=== PATIENT | female | born 1990 | race Caucasian/White ===

== ENCOUNTER 2021-06-17 08:03 | Emergency (ER) | payer OTHER, SELFPAY ==
--- NOTE | 2021-06-17 08:08 | ED.GENADULT ---
HPI - General Adult General Chief complaint: Upper Respiratory Infection Stated complaint: Ear Pain/ Sore Throat Time Seen by Provider: 06/17/21 08:08 Source: patient Mode of arrival: ambulatory Limitations: no limitations History of Present Illness HPI narrative: 31-year-old female patient presents to the [facility] with complaints of stuffy nose, runny nose, headache, sore throat. Patient states symptoms started Friday. Patient states she is not vaccinated for Covid. Patient denies taking anything for her symptoms. Patient denies chest pain, shortness of breath. Patient denies nausea, vomiting or diarrhea. Related Data Home Medications Medication Instructions Recorded Confirmed ergocalciferol (vitamin D2) 1,250 mcg PO WEEKLY 06/17/21 06/17/21 escitalopram oxalate 20 mg PO DAILY 06/17/21 06/17/21 topiramate 25 mg PO DAILY 06/17/21 06/17/21 Allergies Allergy/AdvReac Type Severity Reaction Status Date / Time No Known Allergies Allergy Unverified 06/17/21 08:19 Review of Systems Review of Systems: CONSTITUTIONAL: Denies fever, chills, or sweats. EYES: Denies visual changes, redness, or discharge. ENT: Positive rhinorrhea, congestion, sore throat, and bilateral otalgia. CARDIOVASCULAR: Denies chest pain, palpitations, or edema. RESPIRATORY: Positive nonproductive dry cough, denies dyspnea. GASTROINTESTINAL: Denies abdominal pain, nausea, vomiting, or diarrhea. GENITOURINARY: Denies dysuria or hematuria. SKIN: Denies rash or itching. MUSCULOSKELETAL: Denies back pain, joint pain, or myalgia. NEUROLOGIC: Positive headache, denies numbness, or weakness. PSYCHIATRIC: Denies anxiety or depression. [facility] Past Medical History Medical History (Updated 06/17/21 @ 08:24 by RAEGAN Kasper) Arthritis of knee, right Depression Migraines Ovarian cyst Surgical History Surgical History (Updated 06/17/21 @ 08:10 by RAEGAN Kasper) Delivery by section H/O knee surgery ACL, 2006 Hx of cholecystectomy Family History Family History (Updated 06/17/21 @ 08:11 by RAEGAN Kasper) Other Diabetes mellitus Hypertension Comments At the time of my signature I agree with nursing past medical history, surgical, social, and family history. There is no relevant family history pertinent to the presenting complaint. Exam Narrative: GENERAL: ill-appearing, well-nourished, and in no acute distress. HEAD: Normocephalic, atraumatic. EYES: PERRLA and EOMI. ENT: Nares with erythema and edema noted to right nare, clear rhinorrhea, no epistaxis. Mucous membranes moist. Posterior pharynx with no erythema, tonsillar edema, exudates or lesions present. Bilateral TMs do appear slightly injected but no bulging noted. No concerns for infection at this time. NECK: Supple. No lymphadenopathy CHEST: Clear to auscultation. No respiratory distress. Patient able talk in clear complete sentences. HEART: Regular rate and rhythm. No murmur heard. Normal peripheral pulses. ABDOMEN: Soft, nontender, nondistended, normal active bowel sounds. EXTREMITIES: Normal range of motion. No edema. SKIN: Warm, dry, no rash. NEURO: No focal deficits. Alert and oriented x3. Course Vital Signs Vital signs: Vital Signs Temperature 36.6 C 06/17/21 08:17 Pulse Rate 96 06/17/21 08:17 Respiratory Rate 16 06/17/21 08:17 Blood Pressure 141/84 H 06/17/21 08:17 Pulse Oximetry 98 06/17/21 08:17 Temperature 36.6 C 06/17/21 08:17 Pulse Rate 96 06/17/21 08:17 Respiratory Rate 16 06/17/21 08:17 Blood Pressure 141/84 H 06/17/21 08:17 Pulse Oximetry 98 06/17/21 08:17 Vital signs reviewed The patient has been informed that they may have pre-hypertension or Hypertension based on a BP reading in the department. I recommend that the patient call the primary care provider listed on their discharge instructions or a physician of their choice this week to arrange follow up for further evaluation of possible pre
[2021-06-17 08:17] VITALS: BP 141/84; PULSE 96; RESP 16; TEMP 36.6; O2SAT 98
[2021-06-18 19:59] LABS: SARS-CoV-2 RNA PCR Positive
== END 2021-06-17 08:33 | disposition home or self-care (01) ==
PROVIDERS: Emergency Provider Nurse Practitioner Family
DX: U07.1 COVID-19 (principal); M17.11 Unilateral primary osteoarthritis, right knee; F32.A Depression, unspecified
CPT/HCPCS: 99213; C9803; G0463; U0003; U0005

== ENCOUNTER 2021-12-03 12:46 | Emergency (ER) | payer OTHER, SELFPAY ==
[2021-12-03 12:50] VITALS: BP 126/72; PULSE 97; RESP 20; TEMP 36.9; O2SAT 98
--- NOTE | 2021-12-03 12:57 | ED.URI ---
HPI - URI/Sore Throat General Chief Complaint: Upper Respiratory Infection Stated Complaint: ears cough chest and throat Time Seen by Provider: 12/03/21 12:58 Source: patient and RN notes reviewed History of Present Illness HPI Narrative: Patient is a 31-year-old female who presents the urgent care with complaints of cough, congestion, sore throat and bilateral ear pain. Patient states it started approximately a week and a half ago and she has been taking Sudafed without any results. Patient denies of any fever, nausea, vomiting, shortness of breath or chest pain. Denies any known exposures. No other acute complaints. No acute distress noted. Patient aware of the plan of care. Some parts of this dictation were generated by voice recognition software and may contain typographical and/or grammatical inaccuracies. Related Data Home Medications Medication Instructions Recorded Confirmed ergocalciferol (vitamin D2) 1,250 mcg PO WEEKLY 06/17/21 12/03/21 escitalopram oxalate 20 mg PO DAILY 06/17/21 12/03/21 topiramate 25 mg PO DAILY 06/17/21 12/03/21 levothyroxine 100 mcg PO DAILY 12/03/21 12/03/21 Allergies Allergy/AdvReac Type Severity Reaction Status Date / Time No Known Allergies Allergy Unverified 12/03/21 13:08 Review of Systems Review of Systems: CONSTITUTIONAL: Denies fever, chills, or sweats. EYES: Denies visual changes, redness, or discharge. ENT: Reports of sore throat, bilateral otalgia and congestion CARDIOVASCULAR: Denies chest pain, palpitations, or edema. RESPIRATORY: Reports of cough without dyspnea GASTROINTESTINAL: Denies abdominal pain, nausea, vomiting, or diarrhea. GENITOURINARY: Denies dysuria or hematuria. SKIN: Denies rash or itching. MUSCULOSKELETAL: Denies back pain, joint pain, or myalgia. NEUROLOGIC: Denies headache, numbness, or weakness. All other systems reviewed are negative, except as documented in HPI. [facility] Past Medical History Medical History (Updated 12/03/21 @ 13:15 by RAEGAN Serrano) Arthritis of knee, right Depression Migraines Ovarian cyst Surgical History Surgical History (Updated 06/17/21 @ 08:10 by RAEGAN Kasper) Delivery by section H/O knee surgery ACL, 2007 Hx of cholecystectomy Family History Family History (Updated 06/17/21 @ 08:11 by RAEGAN Kasper) Other Diabetes mellitus Hypertension Comments At the time of my signature, I reviewed and agree with the nursing past medical, surgical, social, and family history. There is no relevant family history pertinent to the patient complaint. Exam Narrative: GENERAL: This is a well-nourished, well-developed patient, in no apparent distress. HEAD: normocephalic, atraumatic. EYES: PERRL. Sclera clear/white. Vision is grossly intact. EARS: External ears normal, auditory canals clear and without drainage, mild bilateral eustachian tube dysfunction. TMs normal without perforation. Hearing grossly intact. NOSE: External nose normal with no obvious nasal discharge, nares without redness, no rhinorrhea. THROAT: Mucous membranes moist, posterior pharynx clear. Mild postnasal drainage NECK: Neck supple CARDIOVASCULAR: Regular rate and rhythm without murmurs, gallops, or rubs. RESPIRATORY: Clear to auscultation. Breath sounds equal bilaterally. No wheezes, rales, or rhonchi. SKIN: warm, intact with no suspicious lesions or rash, good texture and turgor. NEURO: awake, alert, and oriented to person, place and time. There were no obvious focal neurologic abnormalities. EXTREMITIES: No clubbing, cyanosis, or edema. Course Course Level of Care: Express Care Visit Vital Signs Vital signs: Vital Signs Temperature 98.4 F 12/03/21 12:50 Pulse Rate 97 12/03/21 12:50 Respiratory Rate 20 12/03/21 12:50 Blood Pressure 126/72 12/03/21 12:50 Pulse Oximetry 98 12/03/21 12:50 Temperature 98.4 F 12/03/21 12:50 Pulse Rate 97 12/03/21 12:50 Respiratory Rate 20 11/23
== END 2021-12-03 13:20 | disposition home or self-care (01) ==
PROVIDERS: Emergency Provider Nurse Practitioner Family
DX: J40 Bronchitis, not specified as acute or chronic (principal); M17.11 Unilateral primary osteoarthritis, right knee; F32.A Depression, unspecified
CPT/HCPCS: 99213; G0463

== ENCOUNTER 2022-09-01 17:10 | Emergency (ER) | payer MEDICAID, SELFPAY ==
[2022-09-01 17:22] VITALS: BP 147/94; PULSE 98; RESP 20; TEMP 36.6; O2SAT 99
[2022-09-01 17:35] VITALS: BP 147/94; PULSE 98; RESP 20; TEMP 36.6; O2SAT 99
--- NOTE | 2022-09-01 17:47 | ED.URI ---
HPI - URI/Sore Throat General Chief Complaint: Upper Respiratory Infection Stated Complaint: Cough/Chest Congestion Time Seen by Provider: 09/01/22 17:48 History of Present Illness HPI Narrative: Patient presents with cough nasal congestion feeling of ear fullness and laryngitis for the last 2 weeks. Patient has been taking Mucinex and some Tylenol cold and flu for symptoms. No fever no shortness of breath normally healthy individual. Related Data Home Medications Medication Instructions Recorded Confirmed ergocalciferol (vitamin D2) 1,250 1,250 mcg PO WEEKLY 06/17/21 09/01/22 mcg (50,000 unit) capsule escitalopram oxalate 20 mg tablet 20 mg PO DAILY 06/17/21 09/01/22 topiramate 25 mg tablet 25 mg PO DAILY 06/17/21 09/01/22 levothyroxine 100 mcg tablet 100 mcg PO DAILY 12/03/21 09/01/22 rizatriptan 5 mg disintegrating 5 mg PO DAILY PRN Migraine Headache 09/01/22 09/01/22 tablet venlafaxine 37.5 mg 37.5 mg PO DAILY 09/01/22 09/01/22 capsule,extended release 24 hr Allergies Allergy/AdvReac Type Severity Reaction Status Date / Time No Known Allergies Allergy Verified 09/01/22 17:32 Review of Systems Review of Systems: CONSTITUTIONAL: Denies chills, or sweats. Reports fever and generalized body aches EYES: Denies visual changes, redness, or discharge. ENT: Denies otalgia. Reports nasal congestion runny nose and sore throat CARDIOVASCULAR: Denies chest pain, palpitations, or edema. RESPIRATORY: Denies dyspnea. Reports occasional cough GASTROINTESTINAL: Denies abdominal pain, nausea, vomiting, or diarrhea. GENITOURINARY: Denies dysuria or hematuria. SKIN: Denies rash or itching. MUSCULOSKELETAL: Denies back pain, joint pain, or myalgia. Reports generalized body aches NEUROLOGIC: Denies headache, numbness, or weakness. PSYCHIATRIC: Denies anxiety or depression. [facility] Past Medical History Medical History (Updated 09/01/22 @ 17:51 by RAEGAN Quan) Arthritis of knee, right Depression Migraines Ovarian cyst Surgical History Surgical History (Updated 06/17/21 @ 08:10 by RAEGAN Kasper) Delivery by section H/O knee surgery ACL, 2007 Hx of cholecystectomy Family History Family History (Updated 06/17/21 @ 08:11 by RAEGAN Kasper) Other Diabetes mellitus Hypertension Comments At time of signature, agree with nursing past medical, surgical, social and family history. There is no relevant family history pertinent to the presenting complaint Exam Narrative: The patient is a well-developed, well-nourished in no acute distress. SKIN: Skin is warm and dry without erythema, swelling or exudate. There is good turgor. No tenting. HEAD: Atraumatic. Normocephalic. No temporal or scalp tenderness. EYES: Moist and bright. Sclera and conjunctivae normal. No discharge. PERRLA. Extraocular motions intact. Gross visual acuity intact. EARS: Pinna is normal shape and contour. Clear external auditory canals. TM pearly natarajan with good cone of light, no erythema or suppuration. Bilateral cerumen noted no gross hearing deficit. NOSE: pink, moist mucosa with good air movement. Clear rhinorrhea without nasal flaring. Septum midline. Mouth: moist mucous membranes. THROAT; mild erythema noted to posterior oropharynx with moderate postnasal drainage. Without exudate or ulceration.. Uvula midline. Normal movement of soft palate. NECK: Supple and nontender with full range of motion without discomfort. No meningeal signs. LUNGS: Equal and bilateral breath sounds without wheezes, rales or rhonchi. CHEST: The chest wall is without retractions or use of accessory muscles. HEART: Has a regular rate and rhythm without murmur, gallops, click or rub. ABDOMEN: Soft, nontender with positive active bowel sounds. No rebound tenderness. EXTREMITIES: Without cyanosis, clubbing or edema. Equal 2+ distal pulses and 2 second capillary refill noted. NEUROLOGIC: alert, active, . The patient moves all extremities wit
== END 2022-09-01 17:55 | disposition home or self-care (01) ==
PROVIDERS: Emergency Provider Nurse Practitioner Family; PCP Physician Assistant
DX: J06.9 Acute upper respiratory infection, unspecified (principal); J04.0 Acute laryngitis
CPT/HCPCS: 99213; G0463

== ENCOUNTER 2024-03-04 13:37 | Emergency (ER) | payer OTHER, SELFPAY ==
[2024-03-04 13:45] VITALS: BP 138/81; PULSE 96; RESP 16; TEMP 36.3; O2SAT 97
--- NOTE | 2024-03-04 13:59 | ED.GENADULT ---
HPI - General Adult General Chief complaint: Recheck/Abnormal Lab/Rx Stated complaint: needs to be cleared Time Seen by Provider: 03/04/24 13:49 Source: patient and RN notes reviewed Mode of arrival: ambulatory Limitations: no limitations History of Present Illness HPI narrative: Patient presents today requesting a physical exam. She was treated on 02/24/24 for pneumonia with Azithromycin and Amoxicillin and finished them 2 days ago. States she is to have carpal tunnel surgery on 03/11/24 and needs to be cleared for surgery. She needs only an exam and does not require any labs etc. patient states her cough has almost fully resolved. Denies chest pain or shortness of breath. She has been occasionally taking some Robitussin and Tylenol, which did provide some relief. No history of asthma or COPD. She is a nonsmoker. Related Data Home Medications Medication Instructions Recorded Confirmed ergocalciferol (vitamin D2) 1,250 1,250 mcg PO WEEKLY 06/17/21 09/01/22 mcg (50,000 unit) capsule escitalopram oxalate 20 mg tablet 20 mg PO DAILY 06/17/21 09/01/22 levothyroxine 100 mcg tablet 100 mcg PO DAILY 12/03/21 09/01/22 venlafaxine 37.5 mg 37.5 mg PO DAILY 09/01/22 09/01/22 capsule,extended release 24 hr Allergies Allergy/AdvReac Type Severity Reaction Status Date / Time No Known Allergies Allergy Verified 03/04/24 13:39 Review of Systems Review of Systems: CONSTITUTIONAL: Denies body aches, fever, chills, or sweats. EYES: Denies visual changes, redness, or discharge. ENT: Denies rhinorrhea, congestion, sore throat, or otalgia. CARDIOVASCULAR: Denies chest pain, palpitations, or edema. RESPIRATORY: Denies dyspnea.+ occasional cough GASTROINTESTINAL: Denies abdominal pain, nausea, vomiting, or diarrhea. GENITOURINARY: Denies dysuria or hematuria. SKIN: Denies rash, itching, or wounds. MUSCULOSKELETAL: Denies back pain, joint pain, or myalgia. NEUROLOGIC: Denies headache, numbness, tingling, or weakness. PSYCH: Denies depression or anxiety. [facility] Past Medical History Medical History Arthritis of knee, right Depression Migraines Ovarian cyst Surgical History Surgical History Delivery by section H/O knee surgery ACL, 2007 Hx of cholecystectomy Family History Family History Other Diabetes mellitus Hypertension Comments At time of signature, I have reviewed and agree with nursing past medical, surgical, social and family history unless otherwise noted. Please see nursing chart for further information. There is no relevant family history pertinent to the presenting complaint Exam Narrative: GENERAL: Well-appearing, well-nourished, and in no acute distress. HEAD: Normocephalic, atraumatic. EYES: EOMI. No redness or drainage. Conjunctivae normal. ENT: Mucous membranes pink and moist. NECK: Normal AROM. CHEST: No respiratory distress. Clear to auscultation. HEART: Regular rate and rhythm. No murmur appreciated. EXTREMITIES: Normal range of motion. No edema. SKIN: Warm, dry, no rash. Capillary refill normal. Normal skin turgor. NEURO: No focal deficits. Alert and oriented x3. Gait steady. PSYCH: Normal affect. No signs of depression or anxiety. Course Course Level of Care: Express Care Visit Vital Signs Vital signs: Vital Signs Temperature 97.4 F L 03/04/24 13:45 Pulse Rate 96 03/04/24 13:45 Respiratory Rate 16 03/04/24 13:45 Blood Pressure 138/81 03/04/24 13:45 Pulse Oximetry 97 03/04/24 13:45 Oxygen Delivery Room Air 03/04/24 13:45 Temperature 97.4 F L 03/04/24 13:45 Pulse Rate 96 03/04/24 13:45 Respiratory Rate 16 03/04/24 13:45 Blood Pressure 138/81 03/04/24 13:45 Pulse Oximetry 97 03/04/24 13:45 Oxygen Delivery Room Air 03/04/24 13:45
== END 2024-03-04 14:06 | disposition home or self-care (01) ==
PROVIDERS: Emergency Provider Nurse Practitioner; PCP Physician Assistant
DX: Z02.79 Encounter for issue of other medical certificate (principal); M17.11 Unilateral primary osteoarthritis, right knee; F32.A Depression, unspecified
CPT/HCPCS: 99211; G0463

== ENCOUNTER 2025-05-23 15:21 | Emergency (ER) | payer OTHER, MEDICAID, SELFPAY ==
--- OUTSIDE RECORDS SUMMARY | 2025-01-12 11:00 | XMS_ITS ---
Author Organization [facility] Address [facility] [address] Care Team Providers Care Excavating Machine Operator Name Role Phone Shania Sousa PA-C Primary Care Provider Brunilda Nicole Unavailable [phone] Marlee Lopez [phone] REASON FOR VISIT Therapy Social History Sex Assigned At : Social History Observation Description Sex Assigned At Female Encounters En[facility] [place] [id number] [address] [address] 01/12/2025 Marlee Lopez Plan Of Treatment Next Appt Details Provider Name:Marlee Lopez , 05/24/2025 04:00:00 PM, [facility] [address] [facility], [address], [address], Provider Name:Brunilda sanders, 06/13/2025 03:30:00 PM, [facility] [address], [address], [address], Progress Notes * Christina CAZARES RDOB:[birth year] (35 yo F)Acc No.[id number]:01/12/2025 Patient: Brent ana mariavinnieChristina Provider: Phoebe LOPEZ LCSW :1990 A ge:34 Y S ex:Female Date:01/12/2025 Address:[address], [place], [id number] Pcp:Shania Sousa PA-C Data: * Chief Complaints: * T herapy * Electronic signature of Leanna Lopez LCSW on 05/23/2025 at 04:13 PM CDT Sign off status: Pending Signatures: No Ad Hoc Signature Added * Provider: Phoebe LOPEZ LCSW Date: 0 01/12/2025 Generated for Pavel escobedo/Surekha/Alyson on: 0 05/23/2025 04:13 PM CDT
--- OUTSIDE RECORDS SUMMARY | 2025-01-31 08:00 | XMS_ITS ---
Author Organization [facility] Address [facility] [address] Care Team Providers Care Backfiller Name Role Phone Shania Sousa PA-C Primary Care Provider Brunilda Nicole Unavailable [phone] Marlee Lopez [phone] REASON FOR VISIT Therapy Social History Sex Assigned At : Social History Observation Description Sex Assigned At Female Encounters [facility] [place] [id number] [facility] [address] [address] 01/31/2025 Marlee Lopez Plan Of Treatment Next Appt Details Provider Name:Marlee Lopez , 05/24/2025 04:00:00 PM, [address] [place] [address] [address] [facility], [address], [address], Provider Name:Brunilda sanders, 06/13/2025 03:30:00 PM, [facility] [address], [address], [address], Progress Notes * Christina CAZARES RDOB:[birth year] (35 yo F)Acc No.[id number]:01/31/2025 Patient: Brent ana mariavinnieChristina Provider: Phoebe LOPEZ LCSW :1990 A ge:35 Y S ex:Female Date:01/31/2025 Address:[address], [place], [id number] Pcp:Shania Sousa PA-C Data: * Chief Complaints: * T herapy * Electronic signature of Leanna Lopez LCSW on 05/23/2025 at 04:13 PM CDT Sign off status: Pending Signatures: No Ad Hoc Signature Added * Provider: Phoebe LOPEZ LCSW Date: 0 01/31/2025 Generated for Pavel escobedo/Surekha/Alyson on: 0 05/23/2025 04:13 PM CDT
--- OUTSIDE RECORDS SUMMARY | 2025-02-14 11:30 | XMS_ITS ---
Author Organization [facility] Address [facility] [address] Care Team Providers Care Corporate Travel Consultant Name Role Phone Shania Sousa PA-C Primary Care Provider Brunilda Nicole [phone] REASON FOR VISIT 3 month f/u Social History Sex Assigned At : Social History Observation Description Sex Assigned At Female Encounters Encounter Location Date Provider Diagnosis [facility] [place] [id number] [address] 02/14/2025 Brunilda Radford Plan Of Treatment Next Appt Details Provider Name:Marlee Lopez , 05/24/2025 04:00:00 PM, [facility], [address], [address], Provider Name:Brunilda sanders, 06/13/2025 03:30:00 PM, [facility] [address], [address], [address], Progress Notes * Christina CAZARES RDOB:[birth year] (35 yo F)Acc No.[id number]:02/14/2025 Patient: Christina Medina Provider: KATHRIN SIMS :1990 A ge:35 Y S ex:Female Date:02/14/2025 Address:[address], [facility] Pcp:Shania Sousa PA-C Subjective: * Chief Complaints: * 3 month f/u Billing Information: * Procedure Codes: * Electronic signature of KATHRIN Blum on 05/23/2025 at 04:13 PM CDT Sign off status: Pending * Provider: KATHRIN SIMS Date: 0 02/14/2025 Generated for Pavel escobedo/Surekha/Alyson on: 0 05/23/2025 04:13 PM CDT
--- NOTE | 2025-05-23 15:33 | ED.URI ---
HPI - URI/Sore Throat General Chief Complaint: Upper Respiratory Infection Stated Complaint: Body Aches/Cough Time Seen by Provider: 05/23/25 15:37 Source: patient and RN notes reviewed Mode of arrival: ambulatory Limitations: no limitations History of Present Illness HPI Narrative: 35-year-old female presents with concern for my half week history of cough. Reports she has been taking allergy medicine lot relief. She denies runny nose, stuffy nose, sore throat, fever, body aches, chills, sweats. MD elicited complaint: cough Related Data Home Medications ?Medication ?Instructions ?Recorded ?Confirmed ?Last Taken ?Type escitalopram oxalate 20 mg tablet 20 mg PO DAILY 06/17/21 09/01/22 Unknown History levothyroxine 100 mcg tablet 100 mcg PO DAILY 12/03/21 09/01/22 Unknown History bupropion HCl 150 mg 24 hr tablet, mg PO 11/29/24 Unknown History extended release valacyclovir 500 mg tablet mg PO 11/29/24 Unknown History Allergies Allergy/AdvReac Type Severity Reaction Status Date / Time No Known Allergies Allergy Verified 05/23/25 15:37 Review of Systems Review of Systems: CONSTITUTIONAL: Denies malaise, chills, sweats, or fever. EYES: Denies visual changes, redness, or discharge. ENT: Denies rhinorrhea, congestion, sinus pain, otalgia and sore throat. CARDIOVASCULAR: Denies chest pain, palpitations, or edema. RESPIRATORY: Reports cough. Denies dyspnea. GASTROINTESTINAL: Denies abdominal pain, nausea, vomiting, diarrhea SKIN: Denies rash or itching. MUSCULOSKELETAL: Denies myalgia. NEUROLOGIC: Denies headache. All systems reviewed & are unremarkable except as noted in HPI and below PMFSH Past Medical History Medical History Depression Arthritis of knee, right Ovarian cyst Migraines Surgical History Surgical History Delivery by section H/O knee surgery , 2006 Hx of cholecystectomy Family History Family History Other Diabetes mellitus Hypertension Social History Social History Smoking status: Never smoker Comments At time of signature, agree with nursing past medical, surgical, social and family history. There is no relevant family history pertinent to the presenting complaint Exam Narrative: GENERAL: Well-appearing, well-nourished, and in no acute distress. HEAD: Normocephalic EYES: PERRLA, conjunctivae clear ENT: Nares clear. Mucous membranes moist. TM pearly aguilar with dull light reflex bilaterally; no tragal tenderness. Oropharynx not erythematous without lesions. Tonsils not enlarged and without exudate, no drooling, no hoarseness, no trismus, uvula midline. NECK: Supple. No lymphadenopathy CHEST: Clear to auscultation, breath sounds equal. No wheezing, rhonchi, rales, or stridor. No respiratory distress, speaks in full sentences. Cough noted HEART: Regular rate and rhythm. No murmur heard. SKIN: Warm, dry, no rash. NEURO: Alert and oriented x3. PSYCH: Normal mood and affect Course Course Emergency Course: Patient is aware of diagnosis, understands and agrees to treatment plan. Anticipatory guidance given. Patient agrees to follow-up as directed and is aware of reasons to seek care at the emergency department. Portions of this record may have been created with voice recognition software Level of Care: Express Care Visit Vital Signs Vital signs: Reviewed. MDM - URI/Sore Throat MDM Narrative Medical decision making narrative: Differential diagnosis considered: Aleman virus, strep pharyngitis, allergic rhinitis, upper respiratory tract infection, sinusitis, rhinosinusitis, nasopharyngitis. viral pharyngitis, otitis media, otitis externa, pneumonia, bronchitis, viral cough syndrome, viral syndrome, and influenza. Exam findings show no acute concerns or changes; patient is non-toxic appearing and is in no distress. Patient is appropriate for outpatient treatment and follow-up. Lab Data Attestation: I reviewed the patient's lab results. Critical Care Time Critical Care Time Critical Care Time: No Discharge Plan Discharge Clinical Impression: Bronchitis Patient Disposition: Home Condition: Stable Instructions: Acute Bronchitis (ED) Additional Instructions: Viral illness may last between 7-21 days; antibiotics do not cure viral illness and are NOT recommended at this time. Recommend antihistamine such as Benadryl at night time and Zyrtec or Shari during the day Cough syrup may cause drowsiness; avoid driving or take it at night time. Also, recommend symptomatic treatment includes: rest, fluids, and increase humidity of the air at home. Recommend Acetaminophen as directed on the bottle to reduce fever, pain, headache. Avoid smoking/second-hand smoke. Please schedule a follow-up visit with your personal physician for further evaluation and treatment within 3-5days. Including recheck and discussion of your blood pressure. If your symptoms persist, change or worsen significantly before you can contact your personal physician then please, without delay, go to the emergency department for further evaluation. Patient Language: Citizen Of [place] Prescriptions: New promethazine-DM 6.25-15 mg/5 mL syrup 5 ml PO Q4-6H PRN (Reason: cough) Qty: 120 0RF prednisone 20 mg tablet 40 mg PO DAILY 5 Days Qty: 10 0RF No Action levothyroxine 100 mcg tablet 100 mcg PO DAILY escitalopram oxalate 20 mg tablet 20 mg PO DAILY valacyclovir 500 mg tablet PO bupropion HCl 150 mg tablet extended release 24 hr PO Follow-up/Referrals: Merry,SILVINA Schumacher [Primary Care Provider, Unknown] Stand Alone Forms: Work/School Release IP Time of Disposition: 15:46
[2025-05-23 15:34] VITALS: BP 115/60; PULSE 74; RESP 20; TEMP 36.6; O2SAT 100
--- OUTSIDE RECORDS SUMMARY | 2025-05-23 16:13 | XMS_ITS | Clinical Summary ---
Author Organization [facility] Address [address] [place] [address] Phone Care Team Providers Care Office Machine Servicer Name Role Phone Shania Sousa PAC Primary Care Provider + Kolton Landeros MD Unavailable [phone] Milton Cartagena MD Unavailable Alex Childs Unavailable [phone] Allergies No known active allergies Medications BIOTIN FORTE PO Take 1 Tablet by mouth every evening. Active Multiple Vitamin (MULTIVITAMIN PO) Take 1 Tablet by mouth every evening. Active Ferrous Sulfate (IRON PO) Take 65 mg/day by mouth every evening. Active escitalopram (LEXAPRO) 20 MG TabletIndicatio ns:Depression, unspecified depression type TAKE 1 TABLET BY MOUTH EVERY DAY 90 Tablet 1 4 Active levothyroxine (SYNTHROID) 100 MCG TabletIndicatio ns:Hypothyroidi sm, unspecified type TAKE 1 TABLET BY MOUTH EVERY DAY 90 Tablet 1 4 Active busPIRone (BUSPAR) 15 MG Tablet Take 0.5 Tablets by mouth 2 times daily. 90 Tablet 5 Active valACYclovir (VALTREX) 500 MG Tablet TAKE 1 TABLET BY MOUTH EVERY DAY 30 Tablet 5 5 Active MAGNESIUM PO Take by mouth. Ac tive Atogepant (Qulipta) 60 MG TabletIndicatio ns:Chronic migraine w/o aura w/o status migrainosus, not intractable Take 1 Tablet by mouth nightly. 30 Tablet 2 5 Active butalbital-acet aminophen-caffe ine (FIORICET, ESGIC) 50-325-40 MG TabletIndicatio ns:Chronic migraine w/o aura w/o status migrainosus, not intractable Take 1 Tablet by mouth every 4 hours as needed for Headaches or Migraine. 15 Tablet 2 5 Active methylPREDNISol one (MEDROL DOSPACK) 4 MG Tablet Therapy Pack Use as per instructions on package. 1 Tablet 5 Active Active Problems Problem Noted Date Diagnosed Date Carpal tunnel syndrome of left wrist 03/11/2024 Major depressive disorder, recurrent, moderate 1 10/22/2021 Cold sore 06/27/2022 Severe depression 06/27/2022 Leukocytosis Obesity, Class III, BMI 40-49.9 (morbid obesity) Resolved Problems Problem Noted Date Diagnosed Date Resolved Date Acute appendicitis 11/13/2022 3 Encounters Date Type Department Care Team Description 03/18/2025 2:00 PM CDT Office Visit [facility] - Neurology [facility] [address] [place] [address] Brooklyn Mireles, BRIM IRONER HAND, LOCOMOTIVE CRANE OPERATOR HELPER Chronic migraine w/o aura w/o status migrainosus, not intractable (Primary Dx) Discharge Disposition: Discharged to home or Selfcare 03/18/2025 Travel 03/10/2025 Refill [facility] - Family Medicine [facility] [address] [place] [id number] Shania Sousa, JORDY Medication Refill from Last 3 Months Immunizations Immunization Administration Dates Next Due DTP Vaccine 04/21/1995, 1,1990,05/18,1990 Hepatitis B Vaccine, Pediatric/adolescent 01/03/1997,07/12/1996,06/07/1996 Hib Vaccine,unspecified Formulation 04/27,02/09/1991,1990,07/21 Human Papillomavirus (HPV) V accine, Bivalent 01/27/2008 Inactivated Polio Vaccine 04/21/1995,04/1991,1990,03/23 MMR Vaccine 04/21/1995,05/24/1991 Meningococcal C Conjugate Vaccine 12/22/2006 TD VACCINE 03/26/2004 TDAP Vaccine 11/24/2023,12/22/2006 Varicella Vaccine Live 04/14/2000 Family History Medical History Relation Name Comments No Known Problems Brother Diabetes Father Breast Cancer Maternal Grandmother Hypothyroidism Mother Breast Cancer Paternal Grandmother Relation Name Status Comments Brother Father Alive Maternal Grandmother Mother Alive Paternal Grandmother Social History Tobacco Use Types Packs/Day Years Used Date Smoking Tobacco: Never Smokeless Tobacco: Never Tobacco Cessation:Counseling Given: No Alcohol Use Standard Drinks/Week Comments Not Currently 0 (1 standard drink = 0.6 oz pur e alcohol) rarely Electric Impities Answer Date Recorded In the past 12 months has th e electric, gas, oil, or water company threatened to shut off services in your home? Yes 08/31/2024 Social Connection and Isolation Panel Answer Date Recorded In a typical week, how many times do you talk on the phone with family, friends, or neighbors? More than three times a week 08/31/2024 How often do you get togethe r with friends or relatives? Never 08/31/2024 How often do you attend [facility] ch or hinduism services? Never 08/31/2024 Do you belong to any clubs o r organizations such as evangelical groups, unions, fraternal or athletic groups, or school groups? Yes 08/31/2024 How often do you attend meet ings of the clubs or organizations you belong to? 1 to 4 times per year 08/31/2024 Are you , , di vorced, , never , or living with a partner? Living with partner 08/31/2024 AUDIT-C Answer Date Recorded Q1: How often do you have a drink containing alc ohol? Monthly or less 08/31/2024 Q2: How many drinks containi ng alcohol do you have on a typical day when you are drinking? 1 or 2 08/31/2024 Q3: How often do you have si x or more drinks on one occasion? Never 08/31/2024 Overall Financial Resource Strain (CARDIA) Answe r Date Recorded How hard is it for you to pa y for the very basics like food, housing, medical care, and heating? Somewhat hard 08/31/2024 PHQ-2 Answer Date Recorded Total Score - Questions 1-9 16 08/2023 [facility] - Occupational Stress Questionnaire Answer Date Recorded Do you feel stress - tense, restless, nervous, or anxious, or unable to sleep at night because your mind is troubled all the time - these days? Very much 08/31/2024 Exercise Vital Sign Answer Date Recorde d On average, how many days pe r week do you engage in moderate to strenuous exercise (like a brisk walk)? 0 days 08/31/2024 On average, how many minutes do you engage in exercise at this level? 0 min 08/31/2024 Hunger Vital Sign Answer Date Recorded Within the past 12 months, y ou worried that your food would run out before you got the money to buy more. Sometimes true Within the past 12 months, t he food you bought just didn't last and you didn't have money to get more. Sometimes true 02/2025 PRAPARE - Transportation Answer Date Re corded In the past 12 months, has l ack of transportation kept you from medical appointments or from getting medications? No 02/2025 In the past 12 months, has l ack of transportation kept you from meetings, work, or from getting things needed for daily living? No 08/31/2024 Housing Stability Vital Sign Answer Jorge e Recorded In the last 12 months, was t here a time when you were not able to pay the mortgage or rent on time? No 11/22/2023 In the last 12 months, how many places have you lived? 1 11/22/2023 In the last 12 months, was t here a time when you did not have a steady place to sleep or slept in a correction (including now)? No 11/22/2023 Housing Stability Vital Sign Answer Jorge e Recorded In the last 12 months, was t here a time when you were not able to pay the mortgage or rent on time? Patient declined 08/31/19 25 In the past 12 months, how m any times have you moved where you were living? 0 08/31/2024 At any time in the past 12 m [facility], were you homeless or living in a correction (including now)? No 08/31/2024 Education Answer Date Recorded What is the highest level of school you have completed or the highest degree you have received? Bachelor's degree (e.g., BA, AB, BS) 06/27/2022 Sexually Active Control Partners Comments Yes Surgical Male Tubal Comments No Sex and Gender Information Value Date Recorded Sex Assigned at Female 07/27/2023 8:19 PM ACID STRENGTH INSPECTOR Legal Sex Female 7:53 PM CDT Gender Identity Female 07/27/2023 8:19 PM ACID STRENGTH INSPECTOR Sexual Orientation Straight 07/27/2023 8: 19 PM ACID STRENGTH INSPECTOR Last Filed Vital Signs Vital Sign Reading Time Taken Comments Blood Pressure 118/76 03/18/2025 1:56 PM CDT Pulse 91 03/18/2025 1:56 PM CDT Temperature 36.2 C (97.2 F) 03/18/2025 1:56 PM CDT Respiratory Rate 16 03/18/2025 1:56 PM CDT Oxygen Saturation 95% 03/18/2025 1:56 PM CDT Inhaled Oxygen Concentration - - Weight 116.8 kg (257 lb 9.6 oz) 03/18/2025 1:56 PM CDT Height 160 cm (5' 3) 03/18/2025 1:56 PM CDT Body Mass Index 45.63 03/18/2025 1:56 PM CDT Plan of Treatment Upcoming Encounters Date Type Department Care Team (Late st Contact Info) Description 06/07/2025 4:00 PM CDT Office Visit [facility] - Neurology [facility] [address] [place] [address] Brooklyn Mireles APRN, LOCOMOTIVE CRANE OPERATOR HELPER [address] [place] [address] Health Maintenance Due Date Last Done Comments Human Papillomavirus (HPV) Immunization (2 - 3-dose series) 02/24/2008 01/27/2008 HPV/Cotest 01/14/2020 Cervical Cancer Screening (CCS) 11/16/2023 Pap Smear 11/16/2023 11/15/2020 Influenza Immunization (#1) 2025 SARS-COV-2 Immunization (2023-25 season) 2025 DTaP/Tdap/Td Immunization (8 - Td or Tdap) 11/23/2033 11/24/2023, 12/22/2006, 03/26/2004, Additional history exists Respiratory Syncytial Virus (RSV) Immunization (Adult) (1 - 1-dose 75+ series) 2065 Hepatitis B Immunization Completed 997, 07/12/1996, 06/07/1996 Hepatitis C Virus (HCV) Screening Discontinued Meningococcal Immunization (ACWY) Aged Out No longer eligible based on patient's age to complete this topic Pneumococcal Immunization Combined Aged Out No longer eligible based on patient's age to complete this topic Rotavirus Immunization Aged Out No lo nger eligible based on patient's age to complete this topic Goals Goal Patient Goal Type Associated Problems Recent Progress Patient-Stated? Author I want to be able to talk this out. To process all of this. Behavioral Health Yes Zoraida Swain LCSW Note: Goal/Objective: Reduce emotional distress by processing the events. Anticipated Time Frame for Goal Completion: 6 months Goal Reviewed with: patient Readiness to change: Ready to change Department associated with goal: [facility] Steps to achieve goal: will attend psychotherapy/counseling monthly at least 6 sessions and self disclose to have an outlet for distressing thoughts and feelings. will build insight regarding triggers, both internal and external; pt will be able to identify at least two internal and two external triggers to low and anxious moods. Will identify at least two skills/strategies to use when a triggering event occurs Depression Behavioral Health No Zoraida Swain, MANUFACTURING COST ESTIMATOR Note: Christina will manage depressive symptoms more effectively Goal/Objective: Improve management of depressive symptoms. Anticipated Time Frame for Goal Completion: 6 months Goal Reviewed with: patient Readiness to change: Ready to change Department associated with goal: [facility] Steps to achieve goal: will attend counseling/psychotherapy sessions at least once monthly, at least 6 sessions, utilizing individual and/or group sessions to express thoughts and feelings. to identify, verbalize and process at least three contributing factors/triggers to anxiety and depression. to identify and verbalize at least three actions/skills to prevent and/or cope with anxiety and depression. to put into action, at least one time weekly, for one month, an action/skill to prevent and or cope with anxiety and depression. Insurance MEDICAID [place] [address] Advance Directives * Full Code (Latest Code Status on File) Date Activated Date Inactivated Comments 11/13/2022 5:08 AM 11/13/2022 9:30 PM CPR-Full Reid atment: FULL ARREST: Attempt Resuscitation/CPR wit intubation and mechanical ventilation. PRE-ARREST: Use entire range of life support measures to stabilize the patient. Care Teams Office Machine Servicer Relationship Specialty Start Date End Date Shania Sousa PAC [address] [place] [address] PCP - General Physician Critical Care Unit Manager 06/27/22 Kolton Landeros MD [address] [phone] Consulting Physician General Surgery 11/15/22 Milton Cartagena MD [address] [place] [address] Consulting Physician Neurology 01/13/24 Alex Childs PAC [address] [place] [address] Physician Critical Care Unit Manager Physician Critical Care Unit Manager 02/19/24
--- OUTSIDE RECORDS SUMMARY | 2025-05-23 16:13 | XMS_ITS | Encounter Summary ---
Author Organization [facility] Address [address] [place] [address] Phone Care Team Providers Care Roll Edge Stitcher Hand Name Role Phone Shania Sousa PAC Primary Care Provider + Kolton Landeros MD Unavailable Milton Cartagena MD Unavailable [phone] Alex Childs PAC Unavailable [phone] Reason for Visit * Reason Comments Medication Refill Encounter Details Date Type Department Care Team (Late st Contact Info) Description 02/25/2024 Refill [facility] - Family Medicine [facility] [address] [place] [address] Shania Sousa, PAC [address] [place] [address] Medication Refill Social History Tobacco Use Types Packs/Day Years Used Date Smoking Tobacco: Never Smokeless Tobacco: Never Alcohol Use Standard Drinks/Week Comments Not Currently 0 (1 standard drink = 0.6 oz pur e alcohol) rarely [facility] Utilities Answer Date Recorded In the past 12 months has e electric, gas, oil, or water company threatened to shut off services in your home? No 11/22/2023 Social Connection and Isolation Panel Answer Date Recorded In a typical week, how many times do you talk on the phone with family, friends, or neighbors? More than three times a week 11/22/2023 How often do you get togethe r with friends or relatives? Once a week 11/22/2023 How often do you attend chur ch or hindu services? Never 11/22/2023 Do you belong to any clubs o r organizations such as restoration groups, unions, fraternal or athletic groups, or school groups? No 11/22/2023 How often do you attend meet ings of the clubs or organizations you belong to? Never 11/22/2023 Are you , , di vorced, , never , or living with a partner? Living with partner 11/22/2023 AUDIT-C Answer Date Recorded Q1: How often do you have a drink containing alc ohol? Monthly or less 11/22/2023 Q2: How many drinks containi ng alcohol do you have on a typical day when you are drinking? 1 or 2 11/22/2023 Q3: How often do you have si x or more drinks on one occasion? Never 11/22/2023 Overall Financial Resource Strain (CARDIA) Answe r Date Recorded How hard is it for you to pa y for the very basics like food, housing, medical care, and heating? Somewhat hard 11/22/2023 PHQ-2 Answer Date Recorded Total Score - Questions 1-9 16 04/08/2023 [facility] Occupat ional Health - Occupational Stress Questionnaire Answer Date Recorded Do you feel stress - tense, restless, nervous, or anxious, or unable to sleep at night because your mind is troubled all the time - these days? Very much 11/22/2023 Exercise Vital Sign Answer Date Recorde d On average, how many days pe r week do you engage in moderate to strenuous exercise (like a brisk walk)? 0 days 11/22/2023 On average, how many minutes do you engage in exercise at this level? 0 min 11/22/2023 Hunger Vital Sign Answer Date Recorded Within the past 12 months, y ou worried that your food would run out before you got the money to buy more. Never true 11/22/19 24 Within the past 12 months, t he food you bought just didn't last and you didn't have money to get more. Never true 11/22/2023 PRAPARE - Transportation Answer Date Re corded In the past 12 months, has l ack of transportation kept you from medical appointments or from getting medications? No 10/25 In the past 12 months, has l ack of transportation kept you from meetings, work, or from getting things needed for daily living? No 11/22/2023 Housing Stability Vital Sign Answer [...] place to sleep or slept in a detention (including now)? No 11/22/2023 Education Answer Date Recorded What is the highest level of school you have completed or the highest degree you have received? Bachelor's degree (e.g., BA, AB, BS) 06/27/2022 Sexually Active Control Partners Comments Yes Surgical Male Tubal Comments No Sex and Gender Information Value Date Recorded Sex Assigned at Female 07/27/2023 8:19 PM DICTATING MACHINE TRANSCRIBER Legal Sex Female 7:53 PM CDT Gender Identity Female 07/27/2023 8:19 PM DICTATING MACHINE TRANSCRIBER Sexual Orientation Straight 07/27/2023 8: 19 PM DICTATING MACHINE TRANSCRIBER documented as of this encounter Miscellaneous Notes * Telephone Encounter - Magaly Blancas RN - 02/25/2024 3:46 PM CDT 12 week Rx. Therapy complete. documented in this encounter Plan of Treatment Upcoming Encounters Date Type Department Care Team (Late st Contact Info) Description 06/07/2025 4:00 PM CDT Office Visit [facility] - Neurology - [place] [address] [place] [address] Brooklyn Mireles APRN, MOVERS [address] [place] [address] documented as of this encounter Goals Goal Patient Goal Type Associated Problems Recent Progress Patient-Stated? Author I want to be able to talk this out. To process all of this. Behavioral Health Yes Zoraida Swain, GRISELDA Note: Goal/Objective: Reduce emotional distress by processing the events. Anticipated Time Frame for Goal Completion: 6 months Goal Reviewed with: patient Readiness to change: Ready to change Department associated with goal: [facility] Steps to achieve [...] occurs Depression Behavioral Health No Zoraida Swain, GRISELDA Note: Christina will manage depressive symptoms more effectively Goal/Objective: Improve management of depressive symptoms. Anticipated Time Frame for Goal Completion: 6 months Goal Reviewed with: patient Readiness to change: Ready to change Department associated with goal: [facility] Steps to achieve [...] and or cope with anxiety and depression. documented as of this encounter Visit Diagnoses Diagnosis Vitamin D deficiency Unspecified vitamin D deficiency documented in this encounter Additional Health Concerns Assessment Noted Time PHQ-9 Depression Total Score: 16 024 2:37 PM CDT documented as of this encounter Care Teams Roll Edge Stitcher Hand Relationship Specialty Start Date End Date Shania Sousa PAC [address] [place] [address] PCP - General Physician Case Aide 06/27/22 Kolton Landeros MD [address] [address] Consulting Physician General Surgery 11/15/22 Milton Cartagena MD [address] [place] [phone] Consulting Physician Neurology 01/13/24 Alex Childs PAC [address] [place] [address] Physician Case Aide Physician Case Aide 02/19/24 documented as of this encounter
--- OUTSIDE RECORDS SUMMARY | 2025-05-23 16:13 | XMS_ITS | Clinical Summary ---
Author Organization [facility] Address [address] [place] [address] Care Team Providers Care Lining Baster Name Role Phone Unavailable Primary Care Provider Unavailabl e Source Comments [facility],non-owned Affiliates and Associated Physician Practices is amultiple site organization consisting of ambulatory clinics and hospital sitesin [place], [place], [place] and [place]. This disclosure is being madepursuant to the Care Everywhere program and may not contain all information available regarding this patient. Last updated 18.[facility] Allergies No known active allergies Medications * Be aware that medications may not be up to date on this document. Alwaysverify current medications with the patient. vitamin-ferrous fumarate-folic acid (NATALCARE PLUS) 27-1 MG tablet Take 1 Tab by mouth once daily. Active Active Problems Patient Care Coordination No te Formatting of this note migh t be different from the original. Negative Sequential Screen Unable to obtain facial views at [facility] office Problem Noted Date Diagnosed Date Encounter for supervision of other normal pregna ncy 08/13/2013 Overview (07/02/2015): Encounter for routine screen ing for malformation using ultrasonics 08/13/2013 Family History Medical History Relation Name Comments Diabetes Father Relation Name Status Comments Father Social History Tobacco Use Types Packs/Day Years Used Date Smoking Tobacco: Never Assessed Comments No Sex and Gender Information Value Date Recorded Sex Assigned at Not on file Legal Sex Female 5:43 AM RETINAL SURGEON Gender Identity Not on file Sexual Orientation Not on file Plan of Treatment Health Maintenance Due Date Last Done Comments HIV SCREENING 2005 HEPATITIS C SCREENING 01/09/2008 DTAP/TDAP/TD VACCINES (1 - Tdap) 2009 HEPATITIS B VACCINE (1 of 3 - 19+ 3-dose series) 2009 HPV VACCINE (1 - 3-dose SCDM series) 2017 DEPRESSION SCREENING 08/25/2024 COVID-19 VACCINE (1 - 2023-2 5 season) 2025 INFLUENZA VACCINE (#1) 2025 ZOSTER VACCINE (1 of 2) 01/14/2040 HIB VACCINE Aged Out No longer eligi ble based on patient's age to complete this topic MENINGOCOCCAL (Group B) VACC INE SHARED DECISION-MAKING Aged Out No longer eligibl e based on patient's age to complete this topic MENINGOCOCCAL GROUPS A/C/Y/W VACCINE Aged Out No longer eligible b ased on patient's age to complete this topic PNEUMOCOCCAL VACCINE Aged Out No long er eligible based on patient's age to complete this topic Insurance [facility] [place] [address] [place] [address] MEDICA[place]
--- OUTSIDE RECORDS SUMMARY | 2025-05-23 16:13 | XMS_ITS | Encounter Summary ---
Author Organization [facility] Address [address] [place] [address] Phone Care Team Providers Care Cartridge Gauger Name Role Phone Shania Sousa PAC Primary Care Provider + Kolton Landeros MD Unavailable Milton Cartagena MD Unavailable [phone] Alex Childs PAC Unavailable [phone] Reason for Visit * Reason Comments Medication Refill Encounter Details Date Type Department Care Team (Late st Contact Info) Description 11/16/2023 Refill [facility] - Family Medicine [facility] [address] [place] [address] Shania Sousa, PAC [address] [place] [address] Medication Refill Social History Tobacco Use Types Packs/Day Years Used Date Smoking Tobacco: Never Smokeless Tobacco: Never Alcohol Use Standard Drinks/Week Comments Not Currently 0 (1 standard drink = 0.6 oz pur e alcohol) rarely PHQ-2 Answer Date Recorded Total Score - Questions 1-9 0 04/25 Education Answer Date Recorded What is the highest level of school you have completed or the highest degree you have received? Bachelor's degree (e.g., BA, AB, BS) 06/27/2022 Sexually Active Control Partners Comments Yes Surgical Male Tubal Comments No Sex and Gender Information Value Date Recorded Sex Assigned at Female 07/27/2023 8:19 PM SEWER BRICKLAYER Legal Sex Female 7:53 PM CDT Gender Identity Female 07/27/2023 8:19 PM SEWER BRICKLAYER Sexual Orientation Straight 07/27/2023 8: 19 PM SEWER BRICKLAYER documented as of this encounter Miscellaneous Notes * Telephone Encounter - Leslie Plummer RN - 11/16/2023 3:34 PM CDT Medication failed the protocol, provider to review and approve the medication order if appropriate. Requested Prescriptions Pending Prescriptions Disp Refills escitalopram (LEXAPRO) 20 MG Tablet [Pharmacy Med Name: ESCITALOPRAM 20 MG TABLET] 90 Tablet 1 Sig: TAKE 1 TABLET BY MOUTH EVERY DAY [facility] (6 Month Refill Only) Protocol Failed - 11/16/2023 7:07 AM Failed - Has an encounter in the past 6 months with a depression, anxiety, adjustment disorder, OCD, or PTSD visit diagnosis Passed - No test in the past 12 months or most recent test was negative Passed - No active on record Passed - Visit with relevant provider in past 6 months or upcoming 90 days Recent Visits Date Type Provider Dept 08/15/23 Office Visit Amada Reilly APRN, [facility] [place] 07/09/23 Office Visit Amada Reilly APRN, [facility] [place] 07/02/23 Office Visit Shania Sousa, JORDY [facility] [place] 06/30/23 Office Visit Daniel Arthur APRN, [facility] [place] Showing recent visits within past 182 days and meeting all other requirements Future Appointments Date Type Provider Dept 11/24/23 Appointment Shania Sousa, PAC [facility] [place] Showing future appointments within next 90 days and meeting all other requirements Passed - Patient has established therapy with [facility] for at least 6 months documented in this encounter Plan of Treatment Upcoming Encounters Date Type Department Care Team (Late st Contact Info) Description 06/07/2025 4:00 PM CDT Office Visit [facility] - Neurology - [place] [address] [place] [address] Brooklyn Mireles, CERAMIST, MINING ENGINEER [address] [place] [address] documented as of this encounter Goals Goal [...] Ready to change Department associated with goal: [facility] Steps to achieve goal: [...] Ready to change Department associated with goal: [facility] Steps to achieve goal: [...] as of this encounter Visit Diagnoses Diagnosis Depression, unspecified depression type documented in this encounter Additional Health Concerns Infection Onset Date Last Indicated Resolved Time COVID - 19 02/24/2024 02/24/2024 02/24/2024 4:18 PM CDT Assessment Noted Time PHQ-9 Depression Total Score: 0 05/05/20 2:20 PM CDT documented as of this encounter Care Teams Cartridge Gauger Relationship Specialty Start Date End Date Shania Sousa, JORDY [address] [place] [address] PCP - General Physician Nuclear Design Engineer 06/27/22 Kolton Landeros MD [address] [phone] Consulting Physician General Surgery 11/15/22 Milton Cartagena MD [address] [place] [address] Consulting Physician Neurology 01/13/24 Alex Childs PAC [address] [place] [address] Physician Nuclear Design Engineer Physician Nuclear Design Engineer 02/19/24 documented as of this encounter
--- OUTSIDE RECORDS SUMMARY | 2025-05-23 16:13 | XMS_ITS | Encounter Summary ---
Author Organization [facility] Address [address] [place] [address] Phone Care Team Providers Care Manager Hospice Name Role Phone Shania Sousa PAC Primary Care Provider + Kolton Landeros MD Unavailable [phone] Milton Cartagena MD Unavailable [phone] Alex Childs PAC Unavailable [phone] Reason for Visit * Reason Comments Medication Refill Encounter Details Date Type Department Care Team (Late st Contact Info) Description 06/11/2024 Refill [facility] - Family Medicine [facility] [address] [place] [address] Shania Sousa, PAC [address] [place] [address] Medication Refill Social History Tobacco Use Types Packs/Day Years Used Date Smoking Tobacco: Never Smokeless Tobacco: Never Alcohol Use Standard Drinks/Week Comments Not Currently 0 (1 standard drink = 0.6 oz pur e alcohol) rarely [facility] Utilities Answer Date Recorded In the past 12 months has e electric, gas, oil, or water company threatened to shut off services in your home? Yes 03/20/2024 Social Connection and Isolation Panel Answer Date Recorded In a typical week, how many times do you talk on the phone with family, friends, or neighbors? More than three times a week 03/20/2024 How often do you get togethe r with friends or relatives? Once a week 03/20/2024 How often do you attend chur ch or protestant services? Never 03/20/2024 Do you belong to any clubs o r organizations such as anabaptism groups, unions, fraternal or athletic groups, or school groups? No 03/20/2024 How often do you attend meet ings of the clubs or organizations you belong to? Never 03/20/2024 Are you , , di vorced, , never , or living with a partner? Living with partner 03/20/2024 AUDIT-C Answer Date Recorded Q1: How often do you have a drink containing alcohol? Never 03/20/2024 Q2: How many drinks containi ng alcohol do you have on a typical day when you are drinking? Patient does not drink Q3: How often do you have si x or more drinks on one occasion? Never 03/20/2024 Overall Financial Resource Strain (CARDIA) Answe r Date Recorded How hard is it for you to pa y for the very basics like food, housing, medical care, and heating? Hard 03/20/2024 PHQ-2 Answer Date Recorded Total Score - Questions 1-9 16 04/0 08/2023 [facility] of Occupat ional Health - Occupational Stress Questionnaire Answer Date Recorded Do you feel stress - tense, restless, nervous, or anxious, or unable to sleep at night because your mind is troubled all the time - these days? Very much 03/20/2024 Exercise Vital Sign Answer Date Recorde d On average, how many days pe r week do you engage in moderate to strenuous exercise (like a brisk walk)? 0 days 03/20/2024 On average, how many minutes do you engage in exercise at this level? 0 min 03/20/2024 Hunger Vital Sign Answer Date Recorded Within the past 12 months, y ou worried that your food would run out before you got the money to buy more. Sometimes true Within the past 12 months, t he food you bought just didn't last and you didn't have money to get more. Sometimes true PRAPARE - Transportation Answer Date Re corded In the past 12 months, has l ack of transportation kept you from medical appointments or from getting medications? No 02/23 In the past 12 months, has l ack of transportation kept you from meetings, work, or from getting things needed for daily living? No 03/20/2024 Housing Stability Vital Sign Answer Jorge e [...] place to sleep or slept in a mcfp (including now)? No 11/22/2023 Housing Stability Vital Sign Answer Jorge e Recorded In the last 12 months, was t here a time when you were not able to pay the mortgage or rent on time? Yes 03/20/2024 In the past 12 months, how m any times have you moved where you were living? 0 03/20/2024 At any time in the past 12 m [facility], were you homeless or living in a mcfp (including now)? No 03/20/2024 Education Answer Date Recorded What is the highest level of school you have completed or the highest degree you have received? Bachelor's degree (e.g., BA, AB, BS) 06/27/2022 Sexually Active Control Partners Comments Yes Surgical Male Tubal Comments No Sex and Gender Information Value Date Recorded Sex Assigned at Female 07/27/2023 8:19 PM SCIENCE TECHNICIANS Legal Sex Female 7:53 PM CDT Gender Identity Female 07/27/2023 8:19 PM SCIENCE TECHNICIANS Sexual Orientation Straight 07/27/2023 8: 19 PM SCIENCE TECHNICIANS documented as of this encounter Miscellaneous Notes * Telephone Encounter - Lis Alston RN - 06/11/2024 4:47 PM CDT Images from the original note were not included. Name from pharmacy: METHOCARBAMOL 750 MG TABLET Will file in chart as: methocarbamol (ROBAXIN) 750 MG Tablet The original prescription was discontinued on 08/15/2023 by Amada Reilly, SHACTOR, MANAGER LOAN for the following reason: Therapy completed. documented in this encounter Plan of Treatment Upcoming Encounters Date Type Department Care Team (Late st Contact Info) Description 06/07/2025 4:00 PM CDT Office Visit [facility] - Neurology - [place] [address] [place] [address] Brooklyn Mireles APRN, DIRECTOR DRUG [address] [place] [address] documented as of this encounter Goals Goal [...] Ready to change Department associated with goal: [facility] Steps to achieve [...] occurs Depression Behavioral Health No Zoraida Swain, WIRE FENCE BUILDER Note: Christina will manage depressive symptoms more effectively Goal/Objective: Improve management of depressive symptoms. Anticipated Time Frame for Goal Completion: 6 months Goal Reviewed with: patient Readiness to change: Ready to change Department associated with goal: [facility] Steps to achieve [...] as of this encounter Visit Diagnoses Diagnosis Acute left-sided thoracic back pain documented in this encounter Additional Health Concerns Assessment Noted Time PHQ-9 Depression Total Score: 16 024 2:37 PM CDT documented as of this encounter Care Teams Manager Hospice Relationship Specialty Start Date End Date Shania Sousa PAC [address] [place] [address] PCP - General Physician Senior Laboratory Technician 06/27/22 Kolton Landeros MD [address] [phone] Consulting Physician General Surgery 11/15/22 Milton Cartagena MD [address] [place] [phone] Consulting Physician Neurology 01/13/24 Alex Childs PAC [address] [place] [phone] Physician Senior Laboratory Technician Physician Senior Laboratory Technician 02/19/24 documented as of this encounter
--- OUTSIDE RECORDS SUMMARY | 2025-05-23 16:13 | XMS_ITS | Clinical Summary ---
Author Organization [facility] Address [address] [place] [address] Care Team Providers Care Hand Profiler Name Role Phone Shania Sousa Primary Care Provider + [phone] Allergies No known active allergies Medications levothyroxine (SYNTHROID) 100 mcg tablet Take 1 tablet (100 mcg total) by mouth daily 09/26/2022 Active topiramate (TOPAMAX) 25 mg tablet Take 2 tablets (50 mg total) by mouth 2 (two) times a day 06/15/2022 Active escitalopram (LEXAPRO) 20 mg tablet Take 1 tablet (20 mg total) by mouth daily 07/25/2022 Active venlafaxine XR (EFFEXOR-XR) 75 mg 24 hr capsule Take 1 capsule (75 mg total) by mouth daily 08/05/2022 Active ergocalciferol (VITAMIN D) 50,000 unit capsule TAKE 1 CAPSULE BY MOUTH EVERY 1 WEEK 09/02/2022 Active biotin 1 mg tablet Take by mouth 11/20/2016 Active cyanocobalamin, vitamin B-12, (cyanocobalamin ,vit B-12,,bulk,) powder Take by mouth Active multivitamin tablet Take by mouth Active vit-iron fum-folic ac 28 mg iron- 800 mcg tablet Take 1 tablet by mouth daily Active cholecalciferol (VITAMIN D-3) 2000 unit tablet Take by mouth 11/20/2016 Active fluticasone propionate (FLOVENT HFA) 110 mcg/actuation inhaler INHALE 2 PUFFS BY MOUTH EVERY 12 HOURS 09/01/2022 Active tnbvm-5w-srh-ep a-fish oil ([place]-3 Fish OiL) 300-1,000 mg capsule Take by mouth 11/20/2016 Active propranoloL (INDERAL) 10 mg tablet Take 1 tablet (10 mg total) by mouth 3 (three) times a day 10/07/2022 Active rizatriptan (MAXALT) 10 mg tablet Take 1 tablet (10 mg total) by mouth daily as needed 10/07/2022 Active ascorbic acid (ascorbic acid with yin hips) 500 mg tablet,chewable 1 tablet/chew tab (500 mg total) Active zinc gluconate 30 mg tablet Take 30 mg by mouth Active buPROPion XL (WELLBUTRIN XL) 150 mg 24 hr tablet TAKE 1 TABLET EVERY DAY BY ORAL ROUTE IN THE MORNING. 07/21/2024 Active busPIRone (BUSPAR) 15 mg tablet Take 0.5 tablets (7.5 mg total) by mouth 2 (two) times a day 09/24/2024 Active valACYclovir (VALTREX) 500 mg tablet Take 1 tablet (500 mg total) by mouth daily 09/02/2024 Active venlafaxine XR (EFFEXOR-XR) 37.5 mg 24 hr capsule Take by mouth daily 07/21/2024 Active benzonatate (TESSALON) 100 mg capsuleIndicati ons:Cough Take 1 capsule (100 mg total) by mouth 3 (three) times a day as needed for cough 42 capsule 09/29/2024 Active Active Problems Problem Noted Date Diagnosed Date Major depressive disorder, recurrent, moderate 1 10/22/2021 Cold sore 06/27/2022 Severe depression 06/27/2022 Chest pain 11/20/2016 Obesity 11/20/2016 Shortness of breath 11/20/2016 Abnormal nuclear stress test 11/13/2016 Encounter for routine screen ing for malformation using ultrasonics 08/13/2013 Encounter for supervision of other normal pregna ncy 08/13/2013 Overview (10/23/2022): Biliary calculus 03/11/2013 Headache 10/29/2012 Overview (11/29/2016): Headache Surgical History Surgery Date Site/Laterality Comments KNEE ARTHROSCOPY W/ ACL RECONSTRUCTION 08/25/2006 - 08/24/2007 Right SECTION 2011 and 2013 Medical History Medical History Date Comments Hx Other Medical Headache, migra ine Depression Thyroid condition Poor circulation arms/hands Family History Medical History Relation Name Comments Diabetes Father Diabetes mellit us; Breast cancer Other Hypertension Other Relation Name Status Comments Father Other Social History Tobacco Use Types Packs/Day Years Used Date Smoking Tobacco: Never Smokeless Tobacco: Never Tobacco Cessation:Counseling Given: Not Answered Alcohol Use Standard Drinks/Week Comments No 0 (1 standard drink = 0.6 oz pur e alcohol) Personal Safety Answer Date Recorded Have you ever been in or are you currently in a harmful physical or emotional relationship or is someone making you feel afraid or unsafe? Denies 08/13/2024 Comments Unknown Sex and Gender Information Value Date Recorded Sex Assigned at Not on file Legal Sex Female 1:48 AM GLAZING SUPERINTENDENT Gender Identity Not on file Sexual Orientation Not on file Obstetrics History Last Filed Vital Signs Vital Sign Reading Time Taken Comments Blood Pressure 134/86 09/29/2024 3:07 PM GLAZING SUPERINTENDENT Pulse 112 09/29/2024 3:07 PM GLAZING SUPERINTENDENT Temperature 36.9 C (98.5 F) 09/29/2024 3:07 PM GLAZING SUPERINTENDENT Respiratory Rate 22 09/29/2024 3:07 PM GLAZING SUPERINTENDENT Oxygen Saturation 97% 09/29/2024 3:07 PM GLAZING SUPERINTENDENT Inhaled Oxygen Concentration - - Weight 117.9 kg (260 lb) 09/29/2024 3:07 PM GLAZING SUPERINTENDENT Height 162.6 cm (5' 4) 09/29/2024 3:07 PM GLAZING SUPERINTENDENT Body Mass Index 44.63 09/29/2024 3:07 PM GLAZING SUPERINTENDENT Plan of Treatment Health Maintenance Due Date Last Done Comments Cervical Cancer Screening 1990 Depression Screening 1990 Hepatitis C Screening 1990 Varicella Vaccines (2 of 2 - 2-dose childhood series) 07/07/2000 04/14/2000 Regular Well Visit/Exam 18-64 01/14/2008 HPV Vaccines (2 - 3-dose series) 02/24/2008 01/27/2008 Influenza Vaccine (#1) 2025 DTaP/Tdap/Td Vaccine (8 - Td or Tdap) 11/23/2033 11/24/2023, 12/22/2006, 03/26/2004, Additional history exists Hepatitis B Screening Completed 01/03/1997 , 07/12/1996, 06/07/1996 Pneumococcal vaccine <65 Aged Out No longer eligible based on patient's age to complete this topic Insurance IDPA [facility] CHOICE PLUS AETNA [facility] IDPA [facility] CHOICE PLUS Care Teams Hand Profiler Relationship Specialty Start Date End Date Shania Sousa PA [address] [address] PCP - General Propeller Tester 08/13/24
--- OUTSIDE RECORDS SUMMARY | 2025-05-23 16:13 | XMS_ITS | Patient Health Record ---
Author Organization [facility] [employer] Address [address] [facility] [address] [place] [address] Care Team Providers Care Blood Bank Worker Name Role Phone Shania Sousa PA-C Primary Care Provider Brunilda Nicole Unavailable [phone] Marlee Lopez Unavailable [phone] Allergies No Known Allergies Results Component Value Reference Range Notes UDT Reviewed date:10/11/2024 10:43:49 AM Interpretation: Performing Lab: Notes/Report: THC NEG 0 - 50 ng/ml Cocaine NEG 0 - 300 ng/ml Amphetamine NEG 0 - 1000 ng/ml Buprenorphine (BUP) NEG 0 - 10 ng/ml Secobarbital (Bar) NEG 0 - 300 ng/ml Oxazepam (BZO) NEG 0 - 300 ng/ml 9-dobzdjtzho-7,2-pwyutyty-5,3-diphenylpyrrolidine (CHRISTIAN P) NEG 0 - 300 ng/ml Methamphetamine (MET) NEG 0 - 1000 ng/ml Methylenedioxymethamphetamine (MDMA) NEG 0 - 500 ng/ml Morphine (MOP 300/PYV1619) NEG 0 - 300 ng/ml Methadone (MTD) NEG 0 - 300 ng/ml Phencyclidine (PCP) NEG 0 - 25 ng/ml Nortriptyline (TCA) NEG 0 - 1000 ng/ml Oxycodone NEG 0 - 300 ng/ml x NEG 0 - 300 ng/ml Reason For Referral No Information Medications Medication SIG (Take, Route, Frequency, Duration) Notes Start Date End Date Status valACYclovir HCl 500 MG Tablet 1 tablet Oral Once a day; Duration: 30 days Active Levothyroxine Sodium 100 MCG Tablet TAKE 1 TABLET BY MOUTH EVERY DAY Oral Once a day; Duration: 30 days Active Escitalopram Oxalate 20 MG Tablet 1 tablet Oral Once a day; Duration: 90 days Active buPROPion HCl ER (XL) 300 MG Tablet Extended Release 24 Hour 1 tablet in the morning Orally Once a day; Duration: 90 days Active buPROPion HCl ER (XL) 150 MG Tablet Extended Release 24 Hour 1 tablet in the morning Orally Once a day; Duration: 30 days appointment needed Active Qulipta 60 MG Tablet Oral; Duration: 30 Days Active Dmwxjirtrp-JVJE-Tmnjywgh 50-325-40 MG Tablet Oral; Duration: 30 Days Active Social History Tobacco Use: Social History Observation Description Date Details (start date - stop date) Never Smoker NA - NA Sex Assigned At : Social History Observation Description Sex Assigned At Female Social History Miscellaneous: Social Info Question Answer Notes Advance Care Planning Are you your own decision-maker Yes Do you have Power of Customer Pricing Manager for Health or [facility]? No Safety issues: Are there any firearms in the house? No Social History Social Info Question Answer Notes Household: Marital Status: Single Number of Adults in household: 2 Number of Children in Household: 2 Level of Education: Finished College Drug/Alcohol: Social Info Question Answer Notes Drugs Have you used drugs other than those for medical reasons in the past 12 months? No AUDIT-C (Standard) Did you have a drink containing alcohol in the past year? Yes How often did you have six or more drinks on one occasion in the past year? Never (0 point) How many drinks did you have on a typical day when you were drinking in the past year? 1 or 2 drinks (0 point) How often did you have a drink containing alcohol in the past year? 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 Den ies Do you drink alcohol? Yes, not v ezequiel often Problems Problem Type SNOMED Code ICD Code Onset Dates Problem Status W/U Status Risk Notes Problem Severe recurrent major depression without psychotic features (55620886) Major depressive disorder, recurrent severe without psychotic features (F33.2) Active confirmed Problem Generalized anxiety disorder (88350815) Generalized anxiety disorder (F41.1) Active confirmed Vital Signs Heart Rate 89 /min 03/31/2025 Height-cm 165.1 cm 03/31/2025 Blood pressure diastolic 94 mm Hg 03/31/2025 Weight-kg 118.3 kg 03/31/2025 Height 65 in 03/31/2025 Blood pressure systolic 140 mm Hg 03/31/2025 Weight 260.8 lbs 03/31/2025 BMI 43.39 kg/m2 03/31/2025 Encounters Encounter Location Date Provider Diagnosis [place] [address] [facility] [address] [place] [address] 10/11/2024 Brunilda Radford Major depressive disorder, recurrent severe without psychotic features F33.2 and Generalized anxiety disorder F41.1 [place] [address] [facility] [address] [place] [address] 11/15/2024 Brunilda Radford Major depressive disorder, recurrent severe without psychotic features F33.2 ; Generalized anxiety disorder F41.1 and Encounter for screening for depression Z13.31 [place] [address] [facility] [address] [place] [address] 03/31/2025 Brunilda Radford Encounter for screen ing for cardiovascular disorders Z13.6 ; Dietary counseling and surveillance Z71.3 ; Major depressive disorder, recurrent severe without psychotic features F33.2 and Generalized anxiety disorder F41.1 [place] [address] [facility] [address] [place] [address] 03/31/2025 Brunilda Radford [facility], [place] [address] [facility] [address] [place] [address] 10/11/2024 Brunilda Radford [facility], [place] [address] [facility] [address] [place] [address] 11/16/2024 Brunilda Radford [facility], [place] [address] [facility] [address] [place] [address] 11/16/2024 Brunilda Radford [facility], [place] [address] [address] [place] [address] 11/17/2024 Brunilda Radford [facility], [place] [address] [place] [address] 11/17/2024 Brunilda Radford [facility], [place] [address] [facility] [address] [place] [address] 03/17/2025 Brunilda Radford [facility], [facility] [address] [place] [address] 04/06/2025 Brunilda Radford [facility], [facility] [address] [facility] [address] [place] [address] 04/17/2025 Brunilda Radford [facility], [facility] [address] [facility] [address] [place] [address] 04/18/2025 Brunilda Radford [facility], [facility] [address] [facility] [address] [place] [address] 04/24/2025 Brunilda Radford [facility], [facility] [address] [facility] [address] [place] [address] 04/26/2025 Brunilda Radford [facility], [facility] [address] [facility] [place] [address] 05/05/2025 Brunilda Radford [facility], [facility] [address] [facility] [address] [place] [address] 05/06/2025 Brunilda Radford [facility], [facility] [address] [facility] [address] [place] [address] 05/06/2025 Brunilda Radford [facility], [facility] [address] [facility] [place] [address] 05/10/2025 Brunilda Radford [facility], [facility] [address] [facility] [address] [place] [address] 05/10/2025 Brunilda Radford [facility], [facility] [address] [place] [address] 05/10/2025 Brunilda Radford [facility], [facility] [address] [place] [address] 05/13/2025 Brunilda Radford Assessments Encounter Date Diagnosis (ICD Code) Assessment Notes Treatment Notes Treatment Clinical Notes Section Notes 10/11/2024 Major depressive disorder, recurrent severe without psychotic features (ICD-10 - F33.2) Common side effects of Wellbutrin include insomnia, increased anxiety, nausea, dizziness, decreased appetite, restlessness, irritability and anger, increased sweating or hot flashes, tremors, joint pain. Wellbutrin is not recommended in individuals with a history of seizures. If side effects persist, please contact the office. 10/11/2024 Generalized anxiety disorder (ICD-10 - F41.1) SSRI/SNRI side effects discussed including but not limited to, gastric upset, nausea, vomiting, diarrhea and/or constipation, weight changes, sexual side effects including loss of libido, increased suicidal thoughts/behavio rs in children and young adults, and serotonin syndrome. 11/15/2024 Major depressive disorder, recurrent severe without psychotic features (ICD-10 - F33.2) Common side effects of Wellbutrin include insomnia, increased anxiety, nausea, dizziness, decreased appetite, restlessness, irritability and anger, increased sweating or hot flashes, tremors, joint pain. Wellbutrin is not recommended in individuals with a history of seizures. If side effects persist, please contact the office. 03/31/2025 Encounter for screening for cardiovascular disorders (ICD-10 - Z13.6) 03/31/2025 Dietary counseling and surveillance (ICD-10 - Z71.3) 11/15/2024 Generalized anxiety disorder (ICD-10 - F41.1) SSRI/SNRI side effects discussed including but not limited to, gastric upset, nausea, vomiting, diarrhea and/or constipation, weight changes, sexual side effects including loss of libido, increased suicidal thoughts/behavio rs in children and young adults, and serotonin syndrome. 11/15/2024 Encounter for screening for depression (ICD-10 - Z13.31) 03/31/2025 Major depressive disorder, recurrent severe without psychotic features (ICD-10 - F33.2) Common side effects of Wellbutrin include insomnia, increased anxiety, nausea, dizziness, decreased appetite, restlessness, irritability and anger, increased sweating or hot flashes, tremors, joint pain. Wellbutrin is not recommended in individuals with a history of seizures. If side effects persist, please contact the office. 03/31/2025 Generalized anxiety disorder (ICD-10 - F41.1) SSRI/SNRI side effects discussed including but not limited to, gastric upset, nausea, vomiting, diarrhea and/or constipation, weight changes, sexual side effects including loss of libido, increased suicidal thoughts/behavio rs in children and young adults, and serotonin syndrome. 10/11/2024 Other Start Wellbutrin 150mg daily for mood Discontinue buspar due to migraines, likely not getting benefit at current dosing Patient educated on all medications including potential benefits, side effects, risks. Educated on proper dosing schedule and importance of compliance. Referred to counseling -Assessment and treatment plan reviewed with patient. -Compliance with treatment plan importance discussed. -Discussed the risks/benefits of this medication -Discussed medication side effects. -Contact office if symptoms worsen. -Discussed that it can take up to 6-8 weeks to see full therapeutic effects of psychotropic medications. -Crisis prevention hotline 988. 11/15/2024 Other Anxiety, depression significantly improved, continue current medications. -Wellbutrin refill sent in. Patient educated on all medications including potential benefits, side effects, risks. Educated on proper dosing schedule and importance of compliance. Discussed lifestyle modifications to help manage diet -Assessment and treatment plan reviewed with patient. -Compliance with treatment plan importance discussed. -Discussed the risks/benefits of this medication -Discussed medication side effects. -Contact office if symptoms worsen. -Discussed that it can take up to 6-8 weeks to see full therapeutic effects of psychotropic medications. -Crisis prevention hotline 988. 03/31/2025 Other Increase Wellbutrin to 300mg daily for mood support Patient educated on all medications including potential benefits, side effects, risks. Educated on proper dosing schedule and importance of compliance. -Assessment and treatment plan reviewed with patient. -Compliance with treatment plan importance discussed. -Discussed the risks/benefits of this medication -Discussed medication side effects. -Contact office if symptoms worsen. -Discussed that it can take up to 6-8 weeks to see full therapeutic effects of psychotropic medications. -Crisis prevention [place] [phone]. Plan Of Treatment Next Appt Details Provider Name:Marlee Lopez , 05/24/2025 04:00:00 PM, [address], [facility] [address], [place], [address], Provider Name:Brunilda sanders, 06/13/2025 03:30:00 PM, [address], [address], [place], [address], Insurance Providers Payer Name Payer Address Payer Phone Subscriber Number Group Number Insured Name Patient Relationship to Insured Coverage Start Date Coverage End Date [facility] [address] [place] [phone] [id number] Christina Cazares Self - patient is the insured [place] [address] [address] [place] [address] [id number] Christina Cazares Self - patient is the insured Medical (General) History Medical History History ICD Code MDDR Obesity abdominal aortic aneurysm: No undefined atrial fibrillation: No chronic fatigue syndrome: No essential tremor: No hyperlipidemia: No hypertension: No Parkinson's disease: No restless leg syndrome: No stroke: No subdural hematoma: No type 1 diabetes mellitus: No type 2 diabetes mellitus: No vitamin B12 deficiency: No vitamin D deficiency: Yes Surgical History Surgery Date(Month/Year) 08/04/2012 C- Section 12/03/2013 Apendix October 2023 Tubes Tied 12/04/2023 Hospitalization History Reason Date(Month/Year) Apendix October 2023
--- OUTSIDE RECORDS SUMMARY | 2025-05-23 16:13 | XMS_ITS | Encounter Summary ---
Author Organization [facility] Address [address] [place] [address] Phone Care Team Providers Care Learning And Development Coordinator Name Role Phone Shania Sousa PAC Primary Care Provider + Kolton Landeros MD Unavailable [phone] Milton Cartagena MD Unavailable [phone] Alex Childs PAC Unavailable [phone] Reason for Visit * Reason Comments Medication Refill Encounter Details Date Type Department Care Team (Late st Contact Info) Description 08/21/2023 Refill [facility] - Family Medicine [facility] [address] [place] [address] Shania Sousa, PAC [address] [place] [address] Medication Refill Social History Tobacco Use Types [...] Sex Assigned at Female 07/27/2023 8:19 PM 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 Name from pharmacy: METHOCARBAMOL 750 MG TABLET Will file in chart as: methocarbamol (ROBAXIN) 750 MG Tablet The original prescription was discontinued on 08/15/2023 by Amada Reilly APRN, LATCHER for the following reason: Therapy completed. Levothyroxine Sodium Dispensed Days Supply Quantity Provider Pharmacy LEVOTHYROXINE 100 MCG TABLET 07/21/2023 90 90 Each Shania Sousa, PAC [id number]... NG AND FILLING MACHINE OPERATOR NG AND FILLING MACHINE OPERATOR documented in this encounter Plan of Treatment Upcoming Encounters Date Type Department Care Team (Late st Contact Info) Description 06/07/2025 4:00 PM CDT Office Visit [facility] Neurology [facility] [address] [place] [address] Brooklyn Mireles APRN, RESIDENTIAL REAL ESTATE ASSISTANT [address] [place] [address] documented as of this encounter Goals Goal Patient Goal Type Associated Problems Recent Progress Patient-Stated? Author I want to be able to talk this out. To process all of this. Behavioral Health Yes Zoraida Swain, CLAIM AUDITOR Note: Goal/Objective: Reduce emotional distress by processing the events. Anticipated Time Frame for Goal Completion: 6 months Goal Reviewed with: patient Readiness to change: Ready to change Department associated with goal: [facility] Steps [...] occurs Depression Behavioral Health No Zoraida Swain, CLAIM AUDITOR Note: Christina will manage depressive symptoms more effectively Goal/Objective: Improve management of depressive symptoms. Anticipated Time Frame for Goal Completion: 6 months Goal Reviewed with: patient Readiness to change: Ready to change Department associated with goal: [facility] Steps [...] Diagnoses Diagnosis Acute left-sided thoracic back pain Hypothyroidism, unspecified type documented in this encounter Additional Health Concerns Infection Onset Date Last Indicated Resolved Time COVID - 19 02/24/2024 02/24/2024 02/24/2024 4:18 PM CDT Assessment Noted Time PHQ-9 Depression Total Score: 0 05/05/20 23 2:20 PM CDT documented as of this encounter Care Teams Learning And Development Coordinator Relationship Specialty Start Date End Date Shania Sousa PAC [address] [place] [address] PCP - General Physician Dining Room Coordinator 06/27/22 Kolton Landeros MD [address] [address] Consulting Physician General Surgery 11/15/22 Milton Cartagena MD [address] [place] [address] Consulting Physician Neurology 01/13/24 Alex Childs PAC [address] [place] [address] Physician Dining Room Coordinator Physician Dining Room Coordinator 02/19/24 documented as of this encounter
== END 2025-05-23 16:09 | disposition home or self-care (01) ==
PROVIDERS: Emergency Provider Nurse Practitioner; PCP Physician Assistant
DX: J40 Bronchitis, not specified as acute or chronic (principal); M17.11 Unilateral primary osteoarthritis, right knee; F32.A Depression, unspecified
CPT/HCPCS: 99213; G0463